=== PATIENT | male | born 1960 | race Asian ===

== ENCOUNTER 2019-01-09 05:38 | Emergency (ER) | payer SELFPAY ==
[~2019-01-09] VITALS: Ht 175.3 cm; Wt 78.5 kg
[2019-01-09 05:44] VITALS: BP 159/104
== END 2019-01-09 06:26 | disposition home or self-care (01) ==
LOC: ER 05:40
DX: I10 Essential (primary) hypertension (principal); F41.9 Anxiety disorder, unspecified; R53.83 Other fatigue; E78.5 Hyperlipidemia, unspecified; F10.10 Alcohol abuse, uncomplicated; Y90.9 Presence of alcohol in blood, level not specified; Z98.890 Other specified postprocedural states

== ENCOUNTER 2024-12-15 10:20 | Inpatient (IN) | payer MEDICAID ==
[~2024-12-15] VITALS: Ht 172.7 cm; Wt 77.1 kg
[2024-12-15] MEDS ORDERED: PANTOPRAZOLE 40 MG VIAL ONE (10:55)
[2024-12-15] MEDS ORDERED: MAG HYDROX/AL HYDROX/SIMETH 30 ML UDC ONE (10:55)
[2024-12-15] MEDS: IV NS 0.9% 1,000 ML BAG IV ONE (11:00)
[2024-12-15] MEDS: PANTOPRAZOLE 40 MG VIAL IV ONE (11:01)
[2024-12-15] MEDS: MAG HYDROX/AL HYDROX/SIMETH 30 ML UDC PO ONE (11:05)
[2024-12-15] MEDS: FAMOTIDINE/PF INJ 40 MG in IV D5W 50 ML IV ONE (11:10)
[2024-12-15 11:20] LABS: PLATELET COUNT (AUTO) 464 K/uL (150-450); RED BLOOD CELL COUNT(AUTO) 5.55 MIL/uL (4.5-6.0); RED CELL DISTRIBUTION WIDTH 13.7 % (11.5-15.0); WHITE BLOOD COUNT (AUTO) 6.5 K/uL (4.3-11.0)
[2024-12-15 11:33] LABS: INR 1.04 (0.91-1.10)
[2024-12-15 11:34] LABS: CALCIUM, SERUM 9.8 mg/dL (8.5-10.1); CREATININE 1.0 mg/dL (0.6-1.3); SODIUM SERUM 134.0 mmol/L (136-145); UREA NITROGEN, BLOOD 27.0 mg/dL (7-18)
[2024-12-15 11:40] LABS: ASPARTATE AMINOTRANSFERASE 17.0 U/L (15-37); TOTAL PROTEIN, SERUM 6.5 g/dL (6.4-8.2)
[2024-12-15] MEDS: PANTOPRAZOLE 80 MG in IV NS 0.9% 500 ML IV ONE (12:40)
[2024-12-15 13:00] VITALS: O2SAT 99
[2024-12-15] MEDS ORDERED: AMLODIPINE BESYLATE 5 MG TABLET ONE (13:20)
[2024-12-15] MEDS: AMLODIPINE BESYLATE 5 MG TABLET PO ONE (13:22)
[2024-12-15 15:00] VITALS: BP 162/98; TEMP 97.4; O2SAT 95
[2024-12-15] MEDS ORDERED: ONDANSETRON HCL/PF 4 MG/2 ML VIAL IVP PRN (15:00)
[2024-12-15] MEDS: hydrALAZINE HCL IV 20 MG VIAL IV ONE (15:21)
[2024-12-15] MEDS: POTASSIUM CL. PREMIX PERIPHER. 50 ML IV SCH (15:26)
[2024-12-15] MEDS ORDERED: IOHEXOL-300 100 ML VIAL IV ONE (16:07)
[2024-12-15] MEDS ORDERED: IV NS 0.9% 250 ML IV ONE (16:07)
[2024-12-15] MEDS ORDERED: ANESTHESIA TRAY IN PYXIS 1 EA TRAY MC ONE (17:35)
[2024-12-15] MEDS: IV NS 0.9% 1,000 ML IV PRN (18:53)
[2024-12-15] MEDS: METOCLOPRAMIDE HCL 10 MG/2 ML VIAL IV SCH (19:46)
[2024-12-15 20:00] VITALS: BP 136/76; TEMP 97.3; O2SAT 97
[2024-12-16] VITALS: BP 119/68; TEMP 97.7; O2SAT 98
[2024-12-16 04:00] VITALS: BP 132/77; TEMP 98.1; O2SAT 97
[2024-12-16] MEDS: FAMOTIDINE/PF INJ 20 MG/2 ML VIAL IV STA (04:29)
[2024-12-16 08:00] VITALS: BP 157/81; TEMP 98.1; O2SAT 98
[2024-12-16] MEDS: PANTOPRAZOLE 40 MG VIAL IV SCH (08:24)
[2024-12-16 08:35] LABS: PLATELET COUNT (AUTO) 402 K/uL (150-450); RED BLOOD CELL COUNT(AUTO) 4.73 MIL/uL (4.5-6.0); RED CELL DISTRIBUTION WIDTH 13.8 % (11.5-15.0); WHITE BLOOD COUNT (AUTO) 7.1 K/uL (4.3-11.0)
[2024-12-16 09:10] LABS: CALCIUM, SERUM 7.8 mg/dL (8.5-10.1); CREATININE 0.9 mg/dL (0.6-1.3); PHOSPHORUS 2.5 mg/dL (2.5-4.9); SODIUM SERUM 135.0 mmol/L (136-145); UREA NITROGEN, BLOOD 18.0 mg/dL (7-18)
[2024-12-16 09:27] LABS: LDL 48.0 mg/dL (0-99)
[2024-12-16] MEDS ORDERED: SUCR1ORA6 PO (10:51)
[2024-12-16] MEDS ORDERED: PANT40TA2 PO (10:51)
[2024-12-16] MEDS ORDERED: METO-295 PO (10:51)
[2024-12-16] MEDS: SUCRALFATE 1 G/10 ML UDC GT SCH (12:03)
[2024-12-16] MEDS: ACETAMINOPHEN 325 MG TABLET PO PRN (14:01)
[2024-12-16] MEDS: FLU VACC 2025-26(6MOS UP) 0.5 ML SYRINGE IM ONE (14:29)
== END 2024-12-16 18:13 | disposition home or self-care (01) | DRG 254 ==
LOC: ER 10:20 → MED 14:18 → TELE 15:05 → MED 12-16 08:56
PROVIDERS: ADMIT Nurse Practitioner Family; ATTEND Nurse Practitioner Family
PROC: 0DJ08ZZ Inspection of Upper Intestinal Tract, Via Natural or Artificial Opening Endoscopic (ICD-10-PCS; principal; 2024-12-15 16:45)
DX: K31.84 Gastroparesis (principal); E44.1 Mild protein-calorie malnutrition; I10 Essential (primary) hypertension; E88.09 Other disorders of plasma-protein metabolism, not elsewhere classified; E87.1 Hypo-osmolality and hyponatremia; E86.0 Dehydration; E78.5 Hyperlipidemia, unspecified; E87.6 Hypokalemia; M10.9 Gout, unspecified; K29.70 Gastritis, unspecified, without bleeding
CPT/HCPCS: 36415; 80048-TC; 80061-TC; 80076-TC; 83735-TC; 84100-TC; 85025-TC; 85027-TC; 85730-TC; 86850-TC; A4223; G0378; J0360; J1308; J2470; J2704; J2765; J3480; J3490; J7030; J7040; J7050; J7060; Q9967